=== PATIENT | male | born 1935 | race Caucasian/White ===

== ENCOUNTER 2021-02-06 14:23 | Inpatient (IN) | payer MEDICARE, MEDICAID ==
[~2021-02-06] VITALS: Ht 172.7 cm; Wt 53.1 kg
[~2021-02-06 14:23] MED LIST: FERR142T6 PO; FURO40TA5 PO; HYDR-3927 PO; LEVO500T2 MT; POTASSIUM CHLOR PO; RABE20TA17 PO
[2021-02-06] MEDS: ACETAMINOPHEN 325MG TABLET PO STA ×2 (14:50→15:49)
[2021-02-06] MEDS ORDERED: PIPERACILLIN/TAZ 3.375G PREMIX 50 ML IV ONE (15:15)
[2021-02-06] MEDS ORDERED: SODIUM CHLORIDE 0.9% 1000ML BAG (SEPSIS BOLUS) IV ONE (15:15)
[2021-02-06] MEDS ORDERED: VANCOMYCIN 1 G PREMIX 200 ML IV ONE (15:15)
[2021-02-06 16:00] LABS: BASOPHILS % 0.3 % (0.0-2.0); EOSINOPHILS % 0.1 % (0.0-5.0); HEMATOCRIT. 39.5 % (42.0-52.0); HEMOGLOBIN. 13.5 g/dL (14.0-18.0); LYMPHOCYTES % 14.4 % (20.0-50.0); MEAN CORPUSCULAR HEMOGLOBIN 32.7 pg (28.0-32.0); MEAN CORPUSCULAR VOLUME 95.7 fL (80.0-94.0); MEAN PLATELET VOLUME 8.8 fl (7.4-10.4); MONOCYTES % 8.1 % (2.0-8.0); NEUTROPHILS % 77.1 % (40.0-76.0); PLATELET 148 x1000/uL (130-400); RED BLOOD CELL COUNT 4.13 mill/uL (4.7-6.1); RED CELL DISTRIBUTION WIDTH 15.8 % (11.6-14.6)
[2021-02-06] MEDS ORDERED: ACETAMINOPHEN 650MG SUPP PR ONE (16:00)
[2021-02-06 16:05] LABS: PROTHROMBIN TIME 10.7 sec (9.6-11.0)
[2021-02-06 16:09] LABS: CHLORIDE 103 mEq/L (98-107)
[2021-02-06 17:21] LABS: CLARITY URINE CLEAR (CLEAR); COLOR URINE YELLOW (YELLOW); KETONES URINE NEGATIVE (NEGATIVE); LEUKOCYTE ESTERASE URINE NEGATIVE (NEGATIVE); NITRITE URINE NEGATIVE (NEGATIVE); OCCULT BLOOD URINE 1+ (NEGATIVE); PROTEIN URINE TRACE (NEGATIVE); UROBILINOGEN URINE 0.2 E.U./dL (0.2-1.0)
[2021-02-07] MEDS ORDERED: NA PHOS,M-B/NA PHOS,DI-BA ENEMA 118ML PR PRN
[2021-02-07] MEDS ORDERED: IPRATROPIUM/ALBUTEROL 0.5-3(2.5)MG/3ML NEB NEB PRN
[2021-02-07] MEDS ORDERED: GUAIFENESIN 200MG/10ML SUGAR FREE UDC PO PRN
[2021-02-07] MEDS ORDERED: DIPHENHYDRAMINE 50MG/ML VIAL IV PRN
[2021-02-07] MEDS ORDERED: MORPHINE SULFATE 2 MG/ML CPJ (NOT FOR IM USE) IV PRN
[2021-02-07] MEDS ORDERED: HYDROCODONE/ACETAMINOPHEN 5/325MG TABLET PO PRN
[2021-02-07] MEDS ORDERED: MAGNESIUM/ALUMINUM HYDROXIDE/SIMETHICONE 30ML UDC PO PRN
[2021-02-07] MEDS ORDERED: SODIUM CHLORIDE 0.45% 1,000 ML IV SCH
[2021-02-07] MEDS ORDERED: ONDANSETRON HCL 4MG/2ML INJ IV PRN
[2021-02-07] MEDS ORDERED: DOCUSATE SODIUM 100MG CAPSULE PO PRN
[2021-02-07] MEDS ORDERED: ACETAMINOPHEN 325MG TABLET PO PRN
[2021-02-07] MEDS ORDERED: NALOXONE HCL 0.4MG/ML VIAL IV PRN (00:30)
[2021-02-07] MEDS: AZITHROMYCIN 500 MG in DEXT 5% WATER 250 ML IV SCH (01:14)
[2021-02-07] MEDS: LORAZEPAM 2MG/ML CPJ IV PRN (01:15)
[2021-02-07 06:56] LABS: BASOPHILS % 0.2 % (0.0-2.0); EOSINOPHILS % 0.3 % (0.0-5.0); HEMATOCRIT. 35.7 % (42.0-52.0); HEMOGLOBIN. 12.1 g/dL (14.0-18.0); LYMPHOCYTES % 17.5 % (20.0-50.0); MEAN CORPUSCULAR HEMOGLOBIN 32.8 pg (28.0-32.0); MEAN CORPUSCULAR VOLUME 96.6 fL (80.0-94.0); MEAN PLATELET VOLUME 7.7 fl (7.4-10.4); MONOCYTES % 8.7 % (2.0-8.0); NEUTROPHILS % 73.3 % (40.0-76.0); PLATELET 99 x1000/uL (130-400); RED BLOOD CELL COUNT 3.69 mill/uL (4.7-6.1); RED CELL DISTRIBUTION WIDTH 15.5 % (11.6-14.6)
[2021-02-07 07:01] LABS: CHLORIDE 106 mEq/L (98-107)
[2021-02-07 07:16] LABS: LDL CHOLESTEROL 46 mg/dL (5-100)
[2021-02-07 07:17] LABS: HDL CHOLESTEROL 59 mg/dL (40-59); T4 FREE 1.21 ng/dL (0.76-1.46)
[2021-02-07] MEDS: ENOXAPARIN 40MG/0.4ML SYR SUBCUT SCH (09:00)
[2021-02-07] MEDS ORDERED: POTASSIUM CHLORIDE 20MEQ TABLET SR PO SCH (09:00)
[2021-02-07 10:30] LABS: T4 FREE 1.22 ng/dL (0.76-1.46)
[2021-02-07 11:39] VITALS: BP 111/50
[2021-02-07] MEDS: SODIUM CHLORIDE 0.9% 1,000 ML IV SCH (12:49)
[2021-02-07] MEDS: ASPIRIN 81MG EC TABLET PO SCH (13:04)
[2021-02-07 14:12] VITALS: BP 111/50
[2021-02-07 16:00] VITALS: BP 111/64
[2021-02-07 20:00] VITALS: BP 119/87
[2021-02-07 22:14] LABS: CREATINE KINASE 89 IU/L (39-308)
[2021-02-07 22:15] LABS: CREATINE KINASE MB FRACTION 8.1 ng/mL (0.5-3.6)
[2021-02-08] VITALS: BP 107/62
[2021-02-08] MEDS: SODIUM CHLORIDE 0.9% 1,000 ML IV SCH ×2 (00:03→15:30)
[2021-02-08] MEDS: AZITHROMYCIN 500 MG in DEXT 5% WATER 250 ML IV SCH (00:47)
[2021-02-08 04:00] VITALS: BP 106/51
[2021-02-08 08:00] VITALS: BP 134/70
[2021-02-08] MEDS: ENOXAPARIN 40MG/0.4ML SYR SUBCUT SCH (09:00)
[2021-02-08 09:29] LABS: BASOPHILS % 0.2 % (0.0-2.0); EOSINOPHILS % 0.8 % (0.0-5.0); HEMATOCRIT. 32.8 % (42.0-52.0); HEMOGLOBIN. 11.1 g/dL (14.0-18.0); LYMPHOCYTES % 21.5 % (20.0-50.0); MEAN CORPUSCULAR HEMOGLOBIN 32.9 pg (28.0-32.0); MEAN CORPUSCULAR VOLUME 97.5 fL (80.0-94.0); MEAN PLATELET VOLUME 7.8 fl (7.4-10.4); MONOCYTES % 10.3 % (2.0-8.0); NEUTROPHILS % 67.2 % (40.0-76.0); PLATELET 118 x1000/uL (130-400); RED BLOOD CELL COUNT 3.37 mill/uL (4.7-6.1); RED CELL DISTRIBUTION WIDTH 15.7 % (11.6-14.6)
[2021-02-08 09:35] LABS: CHLORIDE 108 mEq/L (98-107)
[2021-02-08 09:45] LABS: CREATINE KINASE 69 IU/L (39-308)
[2021-02-08] MEDS: ASPIRIN 81MG EC TABLET PO SCH (09:45)
[2021-02-08 09:47] LABS: CREATINE KINASE MB FRACTION 6.6 ng/mL (0.5-3.6)
[2021-02-08 12:00] VITALS: BP 131/77
[2021-02-08 16:00] VITALS: BP 148/80
[2021-02-08 20:00] VITALS: BP 144/90
[2021-02-08] MEDS ORDERED: DEXTROSE 50% WATER 50ML SYRINGE IV PRN (20:00)
[2021-02-08] MEDS ORDERED: METOPROLOL TARTRATE 25MG TABLET PO NR (20:56)
[2021-02-08] MEDS: INSULIN LISPRO 100 UNITS/ML SUBCUT SCH (21:00)
[2021-02-08] MEDS: BLOOD SUGAR DIAGNOSTIC STRIP TEST SCH (21:00)
[2021-02-09] VITALS: BP 95/60
[2021-02-09] MEDS: AZITHROMYCIN 500 MG in DEXT 5% WATER 250 ML IV SCH (00:24)
[2021-02-09 04:00] VITALS: BP 125/66
[2021-02-09] MEDS: SODIUM CHLORIDE 0.9% 1,000 ML IV SCH ×2 (05:57→19:32)
[2021-02-09] MEDS: INSULIN LISPRO 100 UNITS/ML SUBCUT SCH ×4 (05:57→21:00)
[2021-02-09] MEDS: BLOOD SUGAR DIAGNOSTIC STRIP TEST SCH ×4 (05:57→21:00)
[2021-02-09 08:00] VITALS: BP 115/61
[2021-02-09] MEDS ORDERED: SODIUM CHLORIDE 0.9% 500 ML IV NR (08:45)
[2021-02-09] MEDS ORDERED: METOPROLOL TARTRATE 5MG/5ML VIAL IV NR (08:45)
[2021-02-09] MEDS: ENOXAPARIN 40MG/0.4ML SYR SUBCUT SCH (09:00)
[2021-02-09] MEDS: ASPIRIN 81MG EC TABLET PO SCH (09:01)
[2021-02-09] MEDS: CEFTRIAXONE 1,000 MG in DEXTROSE 5% WATER 50 ML IV SCH (11:39)
[2021-02-09 12:00] VITALS: BP 136/86
[2021-02-09 16:00] VITALS: BP 113/72
[2021-02-09 20:00] VITALS: BP 152/78
[2021-02-10] VITALS: BP 152/95
[2021-02-10] MEDS: AZITHROMYCIN 500 MG in DEXT 5% WATER 250 ML IV SCH (01:44)
[2021-02-10] MEDS: CLONIDINE 0.1MG TABLET PO PRN ×2 (01:44→21:18)
[2021-02-10] MEDS: LORAZEPAM 2MG/ML CPJ IV PRN ×2 (03:08→23:23)
[2021-02-10 04:00] VITALS: BP 134/77
[2021-02-10] MEDS: BLOOD SUGAR DIAGNOSTIC STRIP TEST SCH ×4 (06:40→21:06)
[2021-02-10] MEDS: INSULIN LISPRO 100 UNITS/ML SUBCUT SCH ×4 (06:43→21:00)
[2021-02-10 08:00] VITALS: BP 137/73
[2021-02-10] MEDS: ASPIRIN 81MG EC TABLET PO SCH (08:36)
[2021-02-10] MEDS: ENOXAPARIN 40MG/0.4ML SYR SUBCUT SCH (08:36)
[2021-02-10] MEDS: SODIUM CHLORIDE 0.9% 1,000 ML IV SCH (08:37)
[2021-02-10 08:43] LABS: VITAMIN B12 SERUM 1456 pg/mL (211-911)
[2021-02-10] MEDS ORDERED: SODIUM CHLORIDE 0.9% 500 ML IV ONE (08:45)
[2021-02-10] MEDS ORDERED: MAGNESIUM 2 G PREMIX 50 ML IV NR (11:00)
[2021-02-10] MEDS: CEFTRIAXONE 1,000 MG in DEXTROSE 5% WATER 50 ML IV SCH (11:18)
[2021-02-10 12:00] VITALS: BP 152/81
[2021-02-10 16:00] VITALS: BP 151/82
[2021-02-10 20:00] VITALS: BP 172/76
[2021-02-11] VITALS (7 sets, daily range): BP systolic 112–159; BP diastolic 63–95
[2021-02-11] MEDS: AZITHROMYCIN 500 MG in DEXT 5% WATER 250 ML IV SCH (01:11)
[2021-02-11] MEDS: SODIUM CHLORIDE 0.9% 1,000 ML IV SCH ×2 (01:12→13:49)
[2021-02-11] MEDS: BLOOD SUGAR DIAGNOSTIC STRIP TEST SCH ×4 (06:19→21:00)
[2021-02-11] MEDS: INSULIN LISPRO 100 UNITS/ML SUBCUT SCH ×4 (06:20→21:00)
[2021-02-11] MEDS: ASPIRIN 81MG EC TABLET PO SCH (09:40)
[2021-02-11] MEDS ORDERED: METOPROLOL TARTRATE 5MG/5ML VIAL IV ONE (10:00)
[2021-02-11] MEDS: ENOXAPARIN 40MG/0.4ML SYR SUBCUT SCH (10:20)
[2021-02-11] MEDS: CEFTRIAXONE 1,000 MG in DEXTROSE 5% WATER 50 ML IV SCH (11:56)
[2021-02-11] MEDS: METOPROLOL TARTRATE 25MG TABLET PO SCH ×2 (13:48→17:18)
[2021-02-11 18:04] LABS: CHLORIDE 100 mEq/L (98-107)
[2021-02-12] VITALS: BP 156/75
[2021-02-12 04:00] VITALS: BP 130/73
[2021-02-12] MEDS: SODIUM CHLORIDE 0.9% 1,000 ML IV SCH (06:12)
[2021-02-12] MEDS: BLOOD SUGAR DIAGNOSTIC STRIP TEST SCH ×4 (06:41→21:00)
[2021-02-12] MEDS: INSULIN LISPRO 100 UNITS/ML SUBCUT SCH ×4 (06:41→21:00)
[2021-02-12 08:00] VITALS: BP 180/89
[2021-02-12] MEDS: ASPIRIN 81MG EC TABLET PO SCH (09:43)
[2021-02-12] MEDS: METOPROLOL TARTRATE 25MG TABLET PO SCH ×3 (09:44→16:58)
[2021-02-12 12:00] VITALS: BP 160/78
[2021-02-12] MEDS: CEFTRIAXONE 1,000 MG in DEXTROSE 5% WATER 50 ML IV SCH (12:46)
[2021-02-12 16:00] VITALS: BP 162/78
[2021-02-12 20:00] VITALS: BP 154/75
[2021-02-13] VITALS: BP 140/80
[2021-02-13 04:00] VITALS: BP 132/64
[2021-02-13] MEDS: SODIUM CHLORIDE 0.9% 1,000 ML IV SCH ×2 (06:38→10:40)
[2021-02-13] MEDS: BLOOD SUGAR DIAGNOSTIC STRIP TEST SCH ×2 (06:53→11:34)
[2021-02-13] MEDS: INSULIN LISPRO 100 UNITS/ML SUBCUT SCH ×2 (06:53→11:37)
[2021-02-13 08:00] VITALS: BP 134/60
[2021-02-13] MEDS ORDERED: ENOXAPARIN 40MG/0.4ML SYR SUBCUT SCH (09:00)
[2021-02-13 09:21] LABS: HEMATOCRIT. 33.9 % (42.0-52.0); HEMOGLOBIN. 11.6 g/dL (14.0-18.0); MEAN CORPUSCULAR HEMOGLOBIN 32.8 pg (28.0-32.0); MEAN CORPUSCULAR VOLUME 95.5 fL (80.0-94.0); MEAN PLATELET VOLUME 8.2 fl (7.4-10.4); PLATELET 156 x1000/uL (130-400); RED BLOOD CELL COUNT 3.55 mill/uL (4.7-6.1); RED CELL DISTRIBUTION WIDTH 14.9 % (11.6-14.6)
[2021-02-13 09:34] LABS: PROTHROMBIN TIME 10.9 sec (9.6-11.0)
[2021-02-13 09:35] LABS: CHLORIDE 97 mEq/L (98-107)
[2021-02-13] MEDS: METOPROLOL TARTRATE 25MG TABLET PO SCH ×2 (10:40→12:04)
[2021-02-13] MEDS: ASPIRIN 81MG EC TABLET PO SCH (10:41)
[2021-02-13] MEDS: CEFTRIAXONE 1,000 MG in DEXTROSE 5% WATER 50 ML IV SCH (11:33)
[2021-02-13 12:00] VITALS: BP 129/65
[2021-02-13 13:46] VITALS: BP 129/75
[2021-02-13 16:52] VITALS: BP 126/55
[2021-02-13 18:51] LABS: PLATELET ESTIMATE NORMAL
== END 2021-02-13 16:30 | DRG 871 ==
LOC: ER 14:23 → MICUSO 17:45 → EDBEDREQ 17:54 → EDBEDREQTM 17:54 → 7EST 02-07 07:52
PROVIDERS: ADMIT Internal Medicine; ATTEND Internal Medicine
PROC: 4A10X4Z Monitoring of Central Nervous Electrical Activity, External Approach (ICD-10-PCS; principal; 2021-02-11)
DX: A41.9 Sepsis, unspecified organism (principal); J96.00 Acute respiratory failure, unspecified whether with hypoxia or hypercapnia; G82.50 Quadriplegia, unspecified; J18.9 Pneumonia, unspecified organism; G93.41 Metabolic encephalopathy; E87.1 Hypo-osmolality and hyponatremia; M48.56XA Collapsed vertebra, not elsewhere classified, lumbar region, initial encounter for fracture; I47.1 Supraventricular tachycardia; Z68.1 Body mass index [BMI] 19.9 or less, adult; D69.6 Thrombocytopenia, unspecified; E11.51 Type 2 diabetes mellitus with diabetic peripheral angiopathy without gangrene; I95.9 Hypotension, unspecified; E78.5 Hyperlipidemia, unspecified; E87.6 Hypokalemia; K52.9 Noninfective gastroenteritis and colitis, unspecified; R62.7 Adult failure to thrive; M48.02 Spinal stenosis, cervical region; F03.90 Unspecified dementia, unspecified severity, without behavioral disturbance, psychotic disturbance, mood disturbance, and anxiety; I11.9 Hypertensive heart disease without heart failure; I25.10 Atherosclerotic heart disease of native coronary artery without angina pectoris; K56.41 Fecal impaction; Z20.822 Contact with and (suspected) exposure to COVID-19; Z74.01 Bed confinement status; Z90.49 Acquired absence of other specified parts of digestive tract; Z79.1 Long term (current) use of non-steroidal anti-inflammatories (NSAID); Z79.899 Other long term (current) drug therapy
CPT/HCPCS: 36415; 70551; 71045; 72141; 72148; 74176; 80048; 80053; 80061; 81003; 82550; 82553; 82607; 82728; 82962; 83036; 83605; 83735; 83880; 84145; 84439; 84443; 84484; 85025; 85379; 85384; 86140; 93005; 93306; 93970; 95816; 99291; J0456; J0696; J1650; J1815; J2060; J2405; J2543; J3370; J3475; J3490; J7030; J7040; J7060; U0003; U0005